=== PATIENT | male | born 1960 | race Caucasian/White ===

== ENCOUNTER → 2017-04-09 | Outpatient (CLI) | payer BC ==
[2017-04-09 11:21] LABS: ALT 107 U/L (21-72); AST 61 U/L (17-59); Albumin 4.4 g/dL (3.5-5.0); Alkaline Phosphatase 46 U/L (38-126); Blood Urea Nitrogen 17 mg/dL (9-20); Calcium 9.8 mg/dL (8.4-10.2); Carbon Dioxide 26 mmol/L (22-30); Chloride 107 mmol/L (98-107); Cholesterol 155 mg/dL (<200); Glucose 131 mg/dL (74-99); HDL Cholesterol 33 mg/dL (40-60); LDL Cholesterol,Calculated 89 mg/dL (0-99); Total Protein 7.2 g/dL (6.3-8.2); Triglycerides 167 mg/dL (<150)
[2017-04-09 11:31] LABS: Anion Gap 11 mmol/L; Sodium 144 mmol/L (137-145)
[2017-04-09 12:24] LABS: Basophils # (A) 0.1 k/uL (0-0.2); Basophils % (A) 1 %; Eosinophils # (A) 0.6 k/uL (0-0.7); Eosinophils % (A) 9 %; HCT 48.2 % (39.0-53.0); HGB 15.7 gm/dL (13.0-17.5); Lymphocytes # (A) 1.5 k/uL (1.0-4.8); Lymphocytes % (A) 22 %; MCH 30.4 pg (25.0-35.0); MCHC 32.6 g/dL (31.0-37.0); MCV 93.4 fL (80.0-100.0); Mean Platelet Volume 8.2; Monocytes # (A) 0.4 k/uL (0-1.0); Monocytes % (A) 7 %; Neutrophils % (A) 59 %; Platelet Count 150 k/uL (150-450); RBC 5.16 m/uL (4.30-5.90); RDW 12.7 % (11.5-15.5); WBC 6.8 k/uL (3.8-10.6)
[2017-04-09 14:30] LABS: T4, Free (Free Thyroxine) 1.05 ng/dL (0.78-2.19)
[2017-04-10 07:24] LABS: Hemoglobin A1C 6.7 % (4.0-6.0)
[2017-04-12 07:17] LABS: EBV - EA (IgG) <5.0 U/mL (<9.0); EBV - VCA IgM <10.0 U/mL (<36.0)
== END | disposition home or self-care (01) ==
LOC: LABWHC1 10:45
PROVIDERS: ATTEND Family Medicine
DX: E78.5 Hyperlipidemia, unspecified (principal); R94.5 Abnormal results of liver function studies; R73.9 Hyperglycemia, unspecified
CPT/HCPCS: 36415; 80053; 80061; 83036; 84439; 84443; 85025; 86663; 86664; 86665

== ENCOUNTER 2017-06-27 09:02 | Day surgery (SDC) | payer BC ==
[2017-06-25 16:03] VITALS: BMI 33.0
[~2017-06-27 09:02] MED LIST: LACTATED RINGERS 1,000 ML IV SCH; LIDOCAINE 1% 20 ML VIAL (10MG/ML) FOR IV START INTRADERMA PRN
[2017-06-27 09:47] VITALS: TEMP 98.1
[2017-06-27] MEDS ORDERED: PROPOFOL 10 MG/ML 20 ML VIAL IV ONE (10:42)
--- NOTE | 2017-06-27 11:10 | P.PCN ---
Date of Procedure: 06/27/17 Procedure(s) Performed: BRIEF HISTORY: Patient is a 57-year-old pleasant white male, scheduled for an elective colonoscopy as a part of screening for colorectal neoplasia because of positive Cologard testing. PROCEDURE PERFORMED: Colonoscopy. PREOPERATIVE DIAGNOSIS: Any for colon cancer/positive Cologard testing. IV sedation per Anesthesia. PROCEDURE: After informed consent was obtained, the patient, was brought into the endoscopy unit. IV sedation was administered by Anesthesia under continuous monitoring. Digital rectal examination was normal. Initially the Olympus CF- 160 flexible video colonoscope was then inserted in the rectum, gradually advanced into the cecum without any difficulty. Careful examination was performed as the scope was gradually being withdrawn. Ileocecal valve and the appendiceal orifice were visualized and appeared normal. Prep was excellent. Mucosa of the cecum, ascending colon, appeared normal. There was a 5 mm polyp noted in the ascending colon that was removed by snare polypectomy. Rest of the transverse colon, descending colon, sigmoid colon, and rectum appeared normal. Retroflexion was performed in the rectum and no lesions were seen. The patient tolerated the procedure well. IMPRESSION: 5 mm ascending colon polyp status post polypectomy Rest of the colon appeared normal. RECOMMENDATIONS: Findings of this examination were discussed with the patient as well as his family. He was advised to follow with the biopsy results. If the biopsy shows a tubular adenoma, he can have a repeat colonoscopy in 5 years.
[2017-06-27 11:22] VITALS: BP 117/84; PULSE 67; RESP 18
== END 2017-06-27 11:37 | disposition home or self-care (01) ==
LOC: ORWHC2ENDO 09:02
PROVIDERS: ATTEND Internal Medicine Gastroenterology
DX: D12.2 Benign neoplasm of ascending colon (principal); I10 Essential (primary) hypertension; Z79.891 Long term (current) use of opiate analgesic; Z79.899 Other long term (current) drug therapy; Z79.82 Long term (current) use of aspirin
CPT/HCPCS: 88305; 45385; J2704